=== PATIENT | male | born 1955 | race Caucasian/White ===

== ENCOUNTER 2020-03-05 10:36 | Day surgery (SDC) | payer MEDICARE, OTHER ==
--- NOTE | 2020-03-02 10:39 | NUR ---
T- 98.6 RR- 16 HR- 59 POX- 97% BP LA- 133/80
[2020-03-02 10:51] LABS: HEMATOCRIT 48.9 % (42.0-54.0); MCH 29.9 pg (26.0-34.0); MCHC 32.7 g/dL (31.0-37.0); MCV 91.4 fL (80.0-100.0); MEAN PLATELET VOLUME 8.8 fL (7.4-10.4); RBC 5.35 10x6/uL (4.20-6.10); RDW 13.3 % (11.5-14.5); WBC 7.4 10x3/uL (4.8-10.8)
[~2020-03-05] VITALS: Ht 175.3 cm; Wt 87.1 kg
[~2020-03-05 10:36] MED LIST: IBUPROFEN800 MG PO
[2020-03-05 11:02] VITALS: BP 130/71; Ht 175.3 cm; Wt 87.1 kg
[2020-03-05] MEDS ORDERED: HYDROCODON-ACE1 EA10 PO (13:53)
--- NOTE | 2020-03-05 14:24 | NUR ---
1420 CRUTCHES ARRANGED FOR PT.
--- NOTE | 2020-03-06 09:15 | OP ---
PATIENT NAME: VISHNU CONNELL MEDICAL RECORD: [id number] :51 LOCATION:[facility] ADMISSION DATE: SURGEON: GARRY العلي MD DATE OF OPERATION: 03/05/2020 PREOPERATIVE DIAGNOSES: 1. Medial meniscus tear of the right knee. 2. Possible foreign body. POSTOPERATIVE DIAGNOSIS: Medial meniscus tear of the ____ knee. PROCEDURE: Arthroscopic partial medial meniscectomy. SURGEON: Garry العلي MD ANESTHESIA: General. INTRAOPERATIVE COMPLICATIONS: None. SUMMARY OF PATHOLOGIC FINDINGS: The patient did have a complex tear of the posterior horn of the medial meniscus. While he had been found to have what was thought to be a very small piece of metal around the knee, we discussed with him preoperatively that if it was not in the nail, I was not going to dissect into the deep soft tissues to remove it as it would likely cause more damage than good. He agreed and we proceeded thusly. OPERATIVE SUMMARY IN DETAIL: After obtaining the appropriate preoperative orthopedic surgery consent as well as anesthetic consultation, evaluation, and clearance, the patient was brought to the operating room and placed in a supine position. After general laryngeal mask airway was administered, tourniquet was placed on the proximal aspect of the right lower extremity. Right lower extremity was then prepped and draped in routine sterile fashion. Leg was elevated, exsanguinated, and the tourniquet was inflated to 350 mmHg. Routine inferolateral portal was established followed by superomedial and inferomedial portal. Diagnostic arthroscopy showed the patient to have a complex tear of the posterior horn of the medial meniscus. There was some chondromalacia at the very posterior medial aspect of the tibial plateau associated likely with the torn meniscus. The meniscus was debrided back to stable meniscal elements. Lateral compartment was pristine as was the patellofemoral joint. The knee was insufflated with 30 cc of 0.25% Marcaine with epinephrine, 40 mg of Depo-Medrol. Arthroscopy portals were closed in routine interrupted fashion using 4-0 Prolene. Sterile dressings were applied. Tourniquet was deflated. The patient was awakened, taken to recovery room in stable condition. All final needle and sponge counts were correct. TRANSINT:[id number] Voice Confirmation ID: [id number] DOCUMENT ID: [id number] OPERATIVE REPORT [id number] VISHNU CONNELL SANDRO العلي MD, GARRY MITCHELL at 0915 CC: [id number] DICTATION DATE: 03/05/20 1417 [facility] MANAGER: 03/05/20 2315 [facility] [place] 03/05/20 [place] [id number] [place] [id number]
== END 2020-03-05 15:30 | disposition home or self-care (01) ==
LOC: D.OPS 10:36 → D.PAN 13:30 → D.OPS 15:30
PROVIDERS: Anesthesiology; ATTEND Orthopaedic Surgery
DX: S83.241A Other tear of medial meniscus, current injury, right knee, initial encounter (principal); X58.XXXA Exposure to other specified factors, initial encounter; S89.80XA Other specified injuries of unspecified lower leg, initial encounter; M25.561 Pain in right knee